=== PATIENT | female | born 1950 | race Caucasian/White ===

== ENCOUNTER → 2017-01-30 | Outpatient (CLI) | payer MEDICARE ==
[~2017-01-30] MED LIST: ALLERGY RELIEF10 M1 PO; B12,B-12,B 12500 MC1 PO; EFFEXOR XR150 M1 PO; GLYBURIDE2.5 MG PO; LIPITOR20 MG PO; NEXIUM40 MG PO; PREDNISONE10 MG PO; SINGULAIR10 MG PO; VICO10300 PO; XANAX XR0.5 MG PO; XANAX0.25 MG PO; ZESTRIL20 MG PO; ZETIA10 MG PO
== END | disposition home or self-care (01) ==
LOC: CT 14:31
DX: K57.30 Diverticulosis of large intestine without perforation or abscess without bleeding (principal)

== ENCOUNTER → 2019-03-03 | Outpatient (CLI) | payer MEDICARE | END | disposition home or self-care (01) | LOC: MAMMO 15:12 | DX: Z12.31 Encounter for screening mammogram for malignant neoplasm of breast (principal) ==